=== PATIENT | male | born 1945 | race Caucasian/White ===

== ENCOUNTER 2017-09-08 06:01 | Inpatient (IN) | payer MEDICARE, OTHER ==
[2017-08-25 09:08] LABS: ABSOLUTE BASOPHILS 0.1 thou/uL (0.0-0.2); ABSOLUTE EOSINOPHILS 0.3 thou/uL (0.0-0.7); ABSOLUTE LYMPHOCYTES 1.8 thou/uL (0.8-5.3); ABSOLUTE MONOCYTES 0.6 thou/uL (0.0-1.2); ABSOLUTE NEUTROPHILS 5.4 thou/uL (1.6-8.1); BASOPHILS 1.1 %; EOSINOPHILS 4.1 %; HEMATOCRIT 41.7 % (42.0-52.0); HEMOGLOBIN 13.7 gm/dL (14.0-18.0); LYMPHOCYTES 21.6 %; MCH 26.5 pg (26.0-34.0); MCHC 32.9 g/dL (28.0-37.0); MCV 80.7 fL (80.0-100.0); MONOCYTES 7.8 %; MPV 7.4 fl. (7.2-11.1); NUCLEATED RBCS 0 /100WBC; PLATELET COUNT* 278 thou/uL (150-400); POLYS 65.4 %; RBC 5.17 mil/uL (4.50-6.00); RDW-CV 17.9 % (10.5-14.5); WBC 8.3 thou/uL (4.0-11.0)
[2017-08-25 09:14] LABS: APTT 29.9 Seconds (25.0-31.3); INR 1.1; PROTIME 10.7 Seconds (9.20-11.50)
[2017-08-25 09:17] LABS: ALBUMIN 3.5 g/dL (3.4-5.0); CALCIUM 8.9 mg/dL (8.5-10.1); POTASSIUM 4.1 mmol/L (3.5-5.1); TOTAL BILIRUBIN 0.4 mg/dL (<0.1-1.0); TOTAL PROTEIN 7.3 g/dL (6.4-8.2)
[2017-08-25 10:08] LABS: ESR (SEDRATE) 20 mm/hr (0-20)
[~2017-09-08] VITALS: Ht 167.6 cm; Wt 105.2 kg
[~2017-09-08 06:01] MED LIST: ACCUNEB SO1.25 MG/1 INH; ALEVE220 MG PO; BROMSITE5 ML TOP; CITRATE OF MAG296 ML PO; DOXYCYCLINE 10100 MG PO; HYDROCODONE-AP1 EAC6 PO; NORCO 5-325 TA1 EACH PO; OXYCODONE HCL 55 MG PO; STIOLTO RESPIMAT4 GM INH; XARELTO10 MG PO
[2017-09-08 06:42] VITALS: BP 119/71
--- NOTE | 2017-09-08 13:08 | NUR ---
ASSUMED CARE OF PATIENT AFTER ARRIVING ON THE UNIT FROM PACU AT 1155. ALERT AND ORIENTED X4. ASSESSMENT COMPLETED AND CHARTED. VSS ON 5 LITERS 02. PATIENT HAS HAD A BLOCK BUT STILL HAS C/O PAIN. STARTED ON ORAL PAIN MEDS. FLUIDS INFUSING ORDERED. IS AT BEDSIDE AND WILL CALL DIETARY ABOUT HER HUSBANDS MEALS BECAUSE HE IS ON A CELIAC DIET. CALL LIGHT IS WITHIN REACH. NURSING WILL CONTINUE TO MONITOR.
[2017-09-08 16:03] VITALS: BP 132/62
--- NOTE | 2017-09-08 18:53 | NUR ---
PATIENT REMAINS ALERT AND ORIENTED X4. PATIENTS PAIN HAS BEENMANAGED WITH PAIN MEDICATION. NO COMPLAINTS OF NAUSEA THIS SHIFT. FLUIDS AND ANTIBIOTICS INFUSED ORDERED. PATIENT REMAINS ON 5 LITERS 02 AND CAPNO. 02 SATS IN THE HIGH 80'S TO LOW 90'S, MONITORING PATIENT CLOSELY AND KEEPING RT INFORMED OF THIS. PATIENT IS RESTING COMFORTABLY IN BED AT THIS TIME. HOURLY ROUNDS MAINTAINED. CALL LIGHT WITHING REACH. NURSING WILL CONTINUE TO MONITOR.
--- NOTE | 2017-09-08 19:00 | NUR ---
PATIENT HAS HAD 460ML OUT OF HEMOVAC TODAY SINCE SURGERY. ORTHO RESIDENT CAPRI CALLED, UNDER MOY, AND INFORMED OF THIS. HE STATED TO CLAMP THE HEMOVAC FOR 4 HOURS, THEN UNCLAMP AND CONTINUE TO MONITOR.
[2017-09-08 20:15] VITALS: BP 116/67
[2017-09-09 00:24] VITALS: BP 136/64
[2017-09-09 03:50] VITALS: BP 137/66
[2017-09-09 05:46] LABS: HEMATOCRIT 34.7 % (42.0-52.0); HEMOGLOBIN 11.1 gm/dL (14.0-18.0)
[2017-09-09 07:45] VITALS: BP 137/74
--- NOTE | 2017-09-09 07:47 | NUR ---
Alert and oriented x 4. L knee dressing dry and intact with polarcare in place. He had 260 mls out by 0. Re-examined if clamp was secure and it wasn't so it was clamped. He did end up having another 100 mls drainage after it was unclamped. This am ortho resident dc'd the drain. He started the CPM 0-55 degrees last night and again this am. He's been alternating hydrocodone and oxy IR for pain. He has rated it from 7-9. He is stil on 5L n/c and has had capno monitor on. It has alarmed frequently. This am Dr Zabala said it could be removed. O2 still at 5L n/c. Chest Xray ordered. He hasn't slept much.
[2017-09-09 12:08] VITALS: BP 137/74
--- NOTE | 2017-09-09 13:11 | NUR ---
RECIEVED O.T. EVAL AND TX ORDERS. WILL DEFER TO P.T. AND NURSING. PLEASE ORDER FURTHER O.T. SERVICES IF NEEDED.
[2017-09-09 16:00] VITALS: BP 167/74
--- NOTE | 2017-09-09 16:00 | NUR ---
SPOKE WITH PT.AND . SHE WILL BE WITH HIM 24/ FOR SEVERAL DAYS AFTER DISCHARGE. HE HAS A WALKER AT HOME AND O2. HE NORMALLY WEARS O2 ONLY AT NIGHT BUT AFTER ANY SURGERY HE WILL USUALLY WEAR IT 24HR/DAY FOR A COUPLE OF WEEKS. HE WOULD LIKE TO USE [facility] FOR HH AND REFERRAL MADE TO [facility]. WANTS TO USE [facility] [place]. PRESCRIPTION FOR ELIQUIS CALLED IN WRITTEN TO PHARMACY. WILL NEED TO CHECK COPAY FOR PT. HE IS NORMALLY INDEPENDENT AT HOME.
--- NOTE | 2017-09-09 18:40 | NUR ---
ALERT AND ORIENTED X4. UP WITH ASSIST X1 WITH WALKER AND GAIT BELT. PAIN BEING MANAGED WITH PO PAIN MEDICATION. DENIES NAUSEA. IV IS PATENT AND SALINE LOCKED. ATTENDED THERAPY TWICE THIS SHIFT. CPM IN USE TWICE THIS SHIFT. POLAR CARE IN PLACE. DRESSING IS C/D/I. VSS ON 3.5L O2. HOURLY ROUNDS HAVE BEEN MAINTAINED THROUGHOUT SHIFT. CALL LIGHT IS WITHIN REACH. NURSING WILL CONTINUE TO MONITOR.
[2017-09-10 00:43] VITALS: BP 127/70
[2017-09-10 04:26] VITALS: BP 157/72
--- NOTE | 2017-09-10 04:48 | NUR ---
PATIENT HAS SLEPT WELL THROUGHOUT THE NIGHT. PAIN MEDICATION GIVEN ORDERED WHEN NEEDED AND CHARTED. VSS ON 3.5L 02 VIA NASAL CANNULA. DRESSING TO LEFT KNEE IS C/D/I AND POLAR CARE IN PLACE. IV IN LEFT FOREARM-SL. PATIENT INSTRUCTED TO USE CALL LIGHT WHEN NEEDING ASSISTANCE. HOURLY ROUNDS MADE. WILL CONTINUE WITH PLAN OF CARE AND NURSING TO MONITOR.
[2017-09-10 04:57] LABS: HEMATOCRIT 34.2 % (42.0-52.0); HEMOGLOBIN 11.2 gm/dL (14.0-18.0)
[2017-09-10] MEDS ORDERED: COLACE 100 MG100 MG PO (08:13)
--- NOTE | 2017-09-10 10:52 | NUR ---
ORDERS NOTED FOR DC HOME WITH HH. PT HAD CHOSEN [facility]. CALLED AND FAXED DC ORDERS TO [facility], LEFT MESSAGE. PT WORKING WITH THERAPY, ANTICIPATE DC LATER TODAY
[2017-09-10] MEDS ORDERED: HYDROCODONE-AP1 EAC6 PO (14:45)
[2017-09-10] MEDS ORDERED: OXYCODONE HCL 55 MG PO (14:52)
[2017-09-10 14:54] VITALS: BP 137/74
[2017-09-10] MEDS ORDERED: ELIQUIS2.5 MG PO (14:58)
[2017-09-10] MEDS ORDERED: ASPIRIN325 PO (15:00)
--- NOTE | 2017-09-10 17:15 | NUR ---
PATIENT LEFT UNIT AT 1540. ALERT AND ORIENTED X4. UP WITH ASSIST X1 WITH WALKER AND GAIT BELT. PAIN BEING MANAGED WITH PO PAIN MEDICATION. DENIES NAUSEA. IV DC'D. ATTENDED THERAPY TWICE THIS SHIFT. ALL PERSONAL ITEMS LEFT WITH PATIENT. DISCHARGE INSTRUCTIONS, PRESCRIPTIONS, AND NEW MEDICATION INFORMATION SENT WITH PATIENT. DRESSING C/D/I. KAYLEN HOSE IN PLACE BILATERALLY. VSS ON ROOM AIR. HOURLY ROUNDS HAVE BEEN MAINTAINED THROUGHOUT SHIFT. LEFT WITH VIA CAR.
[2017-09-10 17:23] VITALS: BP 137/74
--- NOTE | 2017-09-12 13:26 | S ---
[address] [address] SURGICAL PATH RPT PROCEDURE Name: GEORGE SNYDER Room: [address] IN [facility].#: [id number] Admission: 09/08/17 Date of : 41 Discharge: 09/10/17 Report #: [id number] Path Case #: [id number] PATHOLOGY REPORT COLLECTION DATE: 09/08/2017 RECEIVED DATE: 09/08/2017 SUBMITTING PHYS: Dr. Piotr Go OTHER PHYS: Dr. Cecil Riggs SPECIMEN(S) RECEIVED: A.Left knee bone and tissue * * * * * * * * * * * * FINAL DIAGNOSIS: Left knee bone and tissue, total knee replacement: - Benign synovium and meniscus and benign bone and cartilage with severe degenerative changes. (KELLY:[facility]; 09/12/2017) PATHOLOGIST: Juan Arrington M.D. REPORT ELECTRONICALLY SIGNED BY: Juan Arrington M.D. DATE/TIME: 09/12/2017 13:25 * * * * * * * * * * * * GROSS PATHOLOGY: Received in formalin labeled "George Snyder left knee bone and tissue," are multiple segments of bone, including tibial plateau, measuring 15.1 x 13.2 x 2.4 cm in aggregate dimensions admixed with soft tissue; meniscus is present. The specimen shows focal eburnation of the articular surfaces. Resistor Coater sections of bone and soft tissue are submitted in cassette A1, following decalcification. (DAC; 09/09/2017) CLINICAL HISTORY: Left knee degenerative joint disease INITIAL CPT CODE(S): A; 10106, 60766 Professional services performed [place] [facility] [place] [address] Technical services performed by [facility] at [address] [place] [address], [facility] [address] [address]. [place] [address] SURGICAL PATH RPT PROCEDURE Name: GEORGE SNYDER Room: [address]#: [id number] Admission: 09/08/17 Date of : 41 Discharge: 09/10/17 Report #: [id number] Path Case #: [id number] [facility] [place] [address] PHONE: [phone] DIRECTOR: Richard Mejia M.D. * * * END OF REPORT * * *
--- NOTE | 2017-09-29 11:54 | OP ---
[address] [address] OPERATIVE REPORT Name: GEORGE SNYDER Room: [address]#: [id number] Admission: 09/08/17 Attend Phys: Irma Adams Discharge: 09/10/17 Date of : 41 Report #: [id number] THIS REPORT FOR: //name// CC: Piotr Hernández DICTATED BY: Michael Brasher DO DATE OF SERVICE: 09/08/2017 PREOPERATIVE DIAGNOSIS: Left knee degenerative joint disease. POSTOPERATIVE DIAGNOSIS: Left knee degenerative joint disease. PROCEDURE: Left total knee arthroplasty utilizing the MicroPort Evolution Medial Pivot Total Knee System with the following components. 1. Size 6 left PS femoral component. 2. Size 6+ left keeled tibial baseplate. 3. A 12 mm PS polyethylene spacer. 4. A 35 mm polyethylene patella component. SURGEON: Piotr Go DO ROVING CHANGER: Michael Brasher DO ESTIMATED BLOOD LOSS: 100 mL ANESTHESIA: General. ANTIBIOTICS: 2 g Ancef IV preoperatively. TOURNIQUET TIME: 62 minutes 300 mmHg, left lower extremity. COMPLICATIONS: None. SPECIMENS: None. DRAINS: Medium Hemovac to left knee. DISPOSITION: Stable to PACU and will be admitted to the hospital for standard postoperative care. INDICATION FOR PROCEDURE: The patient is a pleasant 72-year-old male who was seen in Orthopedic Clinic multiple times with complaints of chronic knee pain. He had a right total knee arthroplasty performed roughly 4 months ago and is [facility] [address] [place] [address] OPERATIVE REPORT Name: GEORGE SNYDER Arabella Room: [address] IN [facility]#: [id number] Admission: 09/08/17 Attend Phys: Irma Aadms Discharge: 09/10/17 Date of : 41 Report #: [id number] doing well in regards to that. He has advanced DJD of the left knee as evidenced by radiographs. Pain was greatly impacting his quality of life refraining performing activities that he wished to and was refractory to conservative measures consisting of oral anti-inflammatories, activity modification, home physical therapy exercises and intra-articular corticosteroid injections for much greater than 6 months' duration. Therefore, recommendation was made for left total knee arthroplasty. Risks, benefits, complications, indications, alternatives were discussed and the patient wished to proceed with surgery today. DESCRIPTION OF PROCEDURE: The patient was seen in preoperative holding area, correct operative site, left knee was initialed. The patient was taken back to operating suite, placed in supine position on the operating table, given benefit of general anesthetic. A well-padded tourniquet was placed to the left upper thigh. Left lower extremity was then prepped and draped in typical fashion. Surgery began with a timeout, identifying correct patient, correct procedure, correct operative site, correct performing surgeon in the preoperative antibiotics. Next, a tourniquet was inflated and a standard anterior midline incision was made to the left knee. Sharp dissection was taken down using a 10 blade scalpel through subcutaneous tissues until prepatellar fascia was encountered. Full thickness skin flaps were developed more so on the medial aspect. Standard medial parapatellar arthrotomy was performed using the new 10 blade scalpel. Subperiosteal dissection of the proximal tibia, both medial and lateral was performed. Patella was everted. A femoral drill was inserted into the femoral canal from the distal femur followed by the intramedullary distal femoral cutting guide set at 5 degrees, left with a 12 mm cut resection. Cutting block was pinned into place and distal femoral cut was performed using oscillating saw. Next, AP sizer was placed using 3 degrees rotation sized to roughly a size 6 femoral component. Guide holes were drilled. A size 6, 4-in-1 cutting block was impacted onto the distal femur and pinned into place anterior, posterior and anterior, posterior chamfer cuts of the distal femur were performed using oscillating saw. All bony debris was removed. Next, attention was turned to the proximal tibia cut using the extramedullary tibial guide, centered over the medial third of the tibial tubercle and tibial spine and center of the talus and second metatarsal as well as judging the appropriate posterior slope, cutting guide was pinned into place taking approximately 10 mm resection off the high lateral side. A proximal tibia cut was performed using oscillating saw. Close attention was paid to protecting our collateral ligaments. All bony debris was removed. Menisci were excised using electrocautery. Tibia trial was then pinned into place followed by impaction of the femoral trial and followed by insertion of a 10 mm polyethylene spacer. Next, attention was turned to the patella, which was resurfaced in the usual fashion using oscillating saw followed by sized to a 35 mm patellar thickness, which was drilled in the appropriate fashion and a trial patella was inserted and felt to be tracking appropriately and knee had full range [place] [address] OPERATIVE REPORT Name: GEORGE SNYDER Room: [address] IN [facility]#: [id number] Admission: 09/08/17 Attend Phys: Cecil AdoreIrma Estrada Discharge: 09/10/17 Date of : 41 Report #: [id number] stable to varus and valgus stress. Overall, had a great alignment. Next, trial femur and patella were removed as well as the polyethylene spacer. The tibia was then drilled and cruciate punched confirmed its final location. Tibial trial was removed. All bony surfaces were well irrigated using pulsatile lavage. Final tibial component was cemented into place and impacted. Excess cement was removed in similar fashion. Final femoral components were cemented into place and impacted using the mallet. All excess cement was removed. A 12 mm polyethylene spacer was inserted and final patellar component was held in place by the patellar clamp. All excess cement was removed. After allowing adequate time for the cement to dry, we placed our final 12 mm polyethylene spacer. It was impacted into place. A local capsular block and subcutaneous block was performed. Tourniquet was deflated at this time. Knee was taken through range of motion and felt to be stable to varus valgus stress, had great stability at 90 degrees with anterior and posterior excursion testing, had full range of motion. Patella was tracking appropriately. The knee was thoroughly irrigated at this point and then, the capsule was closed in a [id number] fashion with #1 Vicryl suture followed by subcutaneous tissues closed in a simple inverted fashion with 2-0 Vicryl suture followed by running subcuticular stitch using 3-0 Stratafix and followed by Dermabond skin glue. Standard dressings were applied consisting of Mepilex, 4 x 4s, ABD, soft roll, 6 inch Gabino bandage. The patient was weaned from general anesthetic, transferred in stable condition to PACU. All sponge and needle counts were correct x 2. <ELECTRONICALLY SIGNED> By: Piotr Go DO 09/29/17 1154 1114 [id number] Go DO /nt
== END 2017-09-10 15:40 | disposition home health service (06) | DRG 470 ==
LOC: M.TBA 06:01 → M.PRE 07:39 → M.ORTHSURG 11:50 → M.PRE 12:47 → M.ORTHSURG 09-10 15:40
PROVIDERS: Orthopaedic Surgery; ADMIT Internal Medicine
PROC: 0SRD0J9 Replacement of Left Knee Joint with Synthetic Substitute, Cemented, Open Approach (ICD-10-PCS; principal; 2017-09-08)
DX: M17.12 Unilateral primary osteoarthritis, left knee (principal); J98.11 Atelectasis; Z96.651 Presence of right artificial knee joint; Z98.42 Cataract extraction status, left eye; Z98.41 Cataract extraction status, right eye; Z96.1 Presence of intraocular lens; J44.9 Chronic obstructive pulmonary disease, unspecified; R09.02 Hypoxemia